=== PATIENT | female | born 1960 | race Caucasian/White ===

== ENCOUNTER → 2018-08-22 | Outpatient (CLI) | payer OTHER ==
[~2018-08-22] MED LIST: ALBU.083IS IH; ALBU90OI6 INH; AMOX500 PO; BUDE6HFA INH; BUSP10 PO; CEPH500 PO; DULO60 PO; FLEXERIL; GABA300 PO; HYDACE5 PO; LORA1 PO; MECL25 PO; OXYACE5T PO; PRED20 PO; RANI150 PO; RXHYD5325 PO; TRAM50 PO; [UNRECOGNIZED DRUG - REMARK]; [UNRECOGNIZED DRUG - REMARK] PO
== END | disposition home or self-care (01) ==
LOC: LAB SHORT 17:57 → LAB 17:57
DX: S91.331A Puncture wound without foreign body, right foot, initial encounter (principal); L08.9 Local infection of the skin and subcutaneous tissue, unspecified
CPT/HCPCS: 87070; 87075; 87077; 87147; 87186; 87205